=== PATIENT | male | born 1995 | race African-American/Black ===

== ENCOUNTER 2017-01-11 18:24 | Emergency (ER) | payer OTHER, SELFPAY | END 2017-01-11 19:43 | disposition home or self-care (01) | LOC: ERS 18:24 | DX: M72.2 Plantar fascial fibromatosis (principal); F17.210 Nicotine dependence, cigarettes, uncomplicated | CPT/HCPCS: 99283 ==

== ENCOUNTER 2017-03-16 14:24 | Emergency (ER) | payer OTHER ==
--- NOTE | 2017-03-16 16:48 | RAD ---
2-3 VIEW RIGHT HIP: 03/16/17 INDICATION: Right hip pain. FINDINGS: No fracture or dislocation. IMPRESSION: No acute osseous abnormality of the right hip. POS: GISELE
== END 2017-03-16 17:21 | disposition home or self-care (01) ==
LOC: ERS 14:24
DX: M25.551 Pain in right hip (principal); F17.210 Nicotine dependence, cigarettes, uncomplicated